=== PATIENT | male | born 1970 | race Caucasian/White ===

== ENCOUNTER 2017-03-04 15:34 | Inpatient (IN) | payer OTHER ==
[2017-03-04] MEDS ORDERED: Sodium Chloride 0.9% 1,000 ML IV ONE (16:00)
--- NOTE | 2017-03-04 16:01 | EDM.PDOC ---
ED HPI GENERAL MEDICAL PROBLEM - General Chief Complaint: Abdominal Pain Stated Complaint: SEVERE ABDOMINAL PAIN [id number] Time Seen by Provider: 03/04/17 15:52 Source of Information: Reports: Patient History Limitations: Reports: No Limitations - History of Present Illness INITIAL COMMENTS - FREE TEXT/NARRATIVE: 46 yo white male c/o 3 days of RLQ pain Onset Date: 03/01/17 Onset Time: 12:00 Duration: Day(s): Location: Reports: Abdomen Quality: Reports: Ache Severity: Moderate Improves with: Reports: None Worsens with: Reports: None Associated Symptoms: Reports: Loss of Appetite Right Lower Abdominal Pain Score (Numeric/FACES): 2 - Related Data Allergies Allergy/AdvReac Type Severity Reaction Status Date / Time No Known Allergies Allergy Verified 03/04/17 15:43 Home Meds: Home Meds Ranitidine HCl [Zantac 75] 75 mg PO DAILY 03/04/17 [History] Past Medical History Respiratory History: Reports: Sleep Apnea Gastrointestinal History: Reports: Hiatal Hernia - Past Surgical History Musculoskeletal Surgical History: Reports: Other (See Below) Other Musculoskeletal Surgeries/Procedures:: knee surgery RENE Social & Family History - Family History Family Medical History: Noncontributory - Tobacco Use Smoking Status *Q: Never Smoker Second Hand Smoke Exposure: No - Caffeine Use Caffeine Use: Reports: Soda, Tea - Recreational Drug Use Recreational Drug Use: No ED ROS GENERAL - Review of Systems Review Of Systems: See Below Constitutional: Reports: No Symptoms HEENT: Reports: No Symptoms Respiratory: Reports: No Symptoms Cardiovascular: Reports: No Symptoms Endocrine: Reports: No Symptoms GI/Abdominal: Reports: Abdominal Pain (rlq), Nausea : Reports: No Symptoms Musculoskeletal: Reports: No Symptoms Skin: Reports: No Symptoms Neurological: Reports: No Symptoms Psychiatric: Reports: No Symptoms Hematologic/Lymphatic: Reports: No Symptoms Immunologic: Reports: No Symptoms ED EXAM, GI/ABD - Physical Exam Exam: See Below Exam Limited By: No Limitations General Appearance: Alert, WD/WN, No Apparent Distress Eyes: Bilateral: EOMI Ears: Normal External Exam Nose: Normal Inspection Throat/Mouth: Normal Inspection Head: Atraumatic Neck: Normal Inspection Respiratory/Chest: No Respiratory Distress, Lungs Clear Cardiovascular: Normal Peripheral Pulses, Regular Rate, Rhythm, No Edema GI/Abdominal Exam: Tender (RLQ), Abnormal Bowel Sounds (decreased) (Male) Exam: No Hernia Back Exam: Normal Inspection Extremities: Normal Inspection, Normal Range of Motion Neurological: Alert, Oriented, CN II-XII Intact Psychiatric: Normal Affect, Normal Mood Skin Exam: Warm, Dry Lymphatic: No Adenopathy Course - Vital Signs Text/Narrative:: Patient Imaging study show acute appendicitis. General Surgery Dr. Jaffe called to evaluate Last Recorded V/S: Last Vital Signs Temp 37.9 C 03/04/17 15:44 Pulse 100 03/04/17 15:44 Resp 18 03/04/17 15:44 BP 158/99 H 03/04/17 15:44 Pulse Ox 100 03/04/17 15:44 - Orders/Labs/Meds Orders: Active Orders 24 hr Category Date Time Status cefOXitin [Mefoxin] 1 gm Med 03/04/17 18:22 Active Sodium Chloride 0.9% [Normal Saline] 50 ml IV ONETIME Medication Orders Cefoxitin Sodium 1 gm/ Sodium (Chloride) 50 mls @ 100 mls/hr IV ONETIME ONE Stop: 03/04/17 18:51 Labs: Laboratory Tests 03/04/17 03/04/17 03/04/17 Range/Units 16:10 16:10 16:10 WBC 17.4 H (5.0-10.0) 10^3/uL RBC 5.22 (4.6-6.2) 10^6/uL Hgb 15.3 (14.0-18.0) g/dL Hct 45.4 (40.0-54.0) % MCV 87.0 (80-100) fL MCH 29.3 (27.0-34.0) pg MCHC 33.7 (33.0-35.0) g/dL Plt Count 235 (150-450) 10^3/uL Neut % (Auto) 83.8 H (42.2-75.2) % Lymph % (Auto) 6.4 L (20.5-50.1) % [place] % (Auto) 9.6 H (2-8) % Eos % (Auto) 0.0 L (1.0-3.0) % Baso % (Auto) 0.2 (0.0-1.0) % Sodium 135 (135-145) mmol/L Potassium 3.9 (3.6-5.0) mmol/L Chloride 98 L (101-111) mmol/L Carbon Dioxide 27.0 (21.0-31.0) mmol/L Anion Gap 13.9 BUN 15 (7-18) mg/dL Creatinine 1.0 (0.6-1.3) mg/dL Est Cr Clr Drug Dosing 105.03 mL/min Estimated GFR (MDRD) > 60 BUN/Creatinine Ratio 15.00 Glucose 105 (74-105) mg/dL Calcium 9.0 (8.4-10.2) mg/dl Total Bilirubin 1.0 (0.2-1.0) mg/dL AST 19 (10-42) IU/L ALT 17 (10-60) IU/L Alkaline Phosphatase 67 (42-121) IU/L Total Protein 7.5 (6.7-8.2) g/dl Albumin 4.0 (3.2-5.5) g/dl Globulin 3.5 Albumin/Globulin Ratio 1.14 Amylase 43 (28-100) U/L Lipase 24 (22-51) U/L Urine Color (YELLOW) Urine Appearance (CLEAR) Urine pH (5.0-9.0) Ur Specific [place] (1.005-1.030) Urine Protein (NEGATIVE) Urine Glucose (UA) (NEGATIVE) Urine Ketones (NEGATIVE) Urine Occult Blood (NEGATIVE) Urine Nitrite (NEGATIVE) Urine Bilirubin (NEGATIVE) Urine Urobilinogen (0.2-1.0) mg/dL Ur Leukocyte Esterase (NEGATIVE) Urine RBC /HPF Urine WBC (0-5/HPF) /HPF Ur Epithelial Cells /HPF Urine Bacteria (0-FEW/HPF) /HPF Urine Mucus /LPF 03/04/17 Range/Units 17:10 WBC (5.0-10.0) 10^3/uL RBC (4.6-6.2) 10^6/uL Hgb (14.0-18.0) g/dL Hct (40.0-54.0) % MCV (80-100) fL MCH (27.0-34.0) pg MCHC (33.0-35.0) g/dL Plt Count (150-450) 10^3/uL Neut % (Auto) (42.2-75.2) % Lymph % (Auto) (20.5-50.1) % [place] % (Auto) (2-8) % Eos % (Auto) (1.0-3.0) % Baso % (Auto) (0.0-1.0) % Sodium (135-145) mmol/L Potassium (3.6-5.0) mmol/L Chloride (101-111) mmol/L Carbon Dioxide (21.0-31.0) mmol/L Anion Gap BUN (7-18) mg/dL Creatinine (0.6-1.3) mg/dL Est Cr Clr Drug Dosing mL/min Estimated GFR (MDRD) BUN/Creatinine Ratio Glucose (74-105) mg/dL Calcium (8.4-10.2) mg/dl Total Bilirubin (0.2-1.0) mg/dL AST (10-42) IU/L ALT (10-60) IU/L Alkaline Phosphatase (42-121) IU/L Total Protein (6.7-8.2) g/dl Albumin (3.2-5.5) g/dl Globulin Albumin/Globulin Ratio Amylase (28-100) U/L Lipase (22-51) U/L Urine Color Yellow (YELLOW) Urine Appearance Clear (CLEAR) Urine pH 7.0 (5.0-9.0) Ur Specific [place] 1.020 (1.005-1.030) Urine Protein 30 H (NEGATIVE) Urine Glucose (UA) Negative (NEGATIVE) Urine Ketones Negative (NEGATIVE) Urine Occult Blood Moderate H (NEGATIVE) Urine Nitrite Negative (NEGATIVE) Urine Bilirubin Negative (NEGATIVE) Urine Urobilinogen 0.2 (0.2-1.0) mg/dL Ur Leukocyte Esterase Negative (NEGATIVE) Urine RBC 5-10 H /HPF Urine WBC 0-5 (0-5/HPF) /HPF Ur Epithelial Cells Rare /HPF Urine Bacteria Few (0-FEW/HPF) /HPF Urine Mucus Few H /LPF Meds: Medications Generic Name Dose Route Start Last Admin Trade Name Freq PRN Reason Stop Dose Admin Cefoxitin Sodium 1 gm/ Sodium 50 mls @ 100 mls/hr 03/04/17 18:22 Chloride IV 03/04/17 18:51 ONETIME ONE Discontinued Medications Generic Name Dose Route Start Last Admin Trade Name Freq PRN Reason Stop Dose Admin Sodium Chloride 1,000 mls @ 999 mls/hr 03/04/17 16:00 03/04/17 16:13 Normal Saline IV 03/04/17 17:00 999 mls/hr .BOLUS ONE Administration Iopamidol 75 ml 03/04/17 16:42 Isovue-300 (61%) IVPUSH 03/04/17 16:43 ONETIME ONE Iopamidol 100 ml 03/04/17 16:51 03/04/17 16:56 Isovue-300 (61%) IVPUSH 03/04/17 16:52 100 ml ONETIME ONE Administration Morphine Sulfate 4 mg 03/04/17 18:22 Morphine IVPUSH 03/04/17 18:23 ONETIME ONE Ondansetron HCl 4 mg 03/04/17 17:33 03/04/17 17:59 Zofran IV 03/04/17 17:34 4 mg ONETIME ONE Administration Departure - Departure Time of Disposition: 18:26 Disposition: Admitted As Inpatient 64 Condition: Fair Clinical Impression: Appendicitis Qualifiers: Appendicitis type: acute appendicitis Acute appendicitis type: unspecified acute appendicitis type Qualified Code(s): K35.80 - Unspecified acute appendicitis - Discharge Information Referrals: Elier Jaffe MD [Physician] - Forms: ED Department Discharge - My Orders Last 24 Hours: My Active Orders 03/04/17 18:22 cefOXitin [Mefoxin] 1 gm Sodium Chloride 0.9% [Normal Saline] 50 ml IV ONETIME - Assessment/Plan Last 24 Hours: My Active Orders 03/04/17 18:22 cefOXitin [Mefoxin] 1 gm Sodium Chloride 0.9% [Normal Saline] 50 ml IV ONETIME
[2017-03-04] MEDS ORDERED: Iopamidol 612 MG/ML 75 ML Bottle IVPUSH ONE (16:42)
[2017-03-04] MEDS ORDERED: Iopamidol 612 MG/ML 100 ML Bottle IVPUSH ONE (16:51)
[2017-03-04 17:14] LABS: CHLORIDE,CL 98 mmol/L (101-111)
[2017-03-04 17:18] LABS: SODIUM,NA 135 mmol/L (135-145)
[2017-03-04] MEDS ORDERED: Ondansetron 4 MG/2 ML SDV IV ONE ×2 (17:33→19:12)
[2017-03-04] MEDS ORDERED: Morphine 4 MG/ML Syringe IVPUSH ONE (18:22)
[2017-03-04] MEDS ORDERED: Midazolam 1 MG/ML 2 ML SDV ONE (18:52)
[2017-03-04] MEDS ORDERED: ePHEDrine 50 MG/ML SDV ONE (18:53)
[2017-03-04] MEDS ORDERED: Ketorolac 30 MG/ML SDV ONE (18:53)
[2017-03-04] MEDS ORDERED: Ondansetron 4 MG/2 ML SDV ONE (18:53)
[2017-03-04] MEDS ORDERED: fentaNYL 100 MCG/2 ML SDV ONE (18:53)
[2017-03-04] MEDS ORDERED: Neostigmine Methylsulfate 10 MG/10 ML MDV ONE (18:53)
[2017-03-04] MEDS ORDERED: Phenylephrine 1% 10 MG/ML SDV ONE (18:53)
[2017-03-04] MEDS ORDERED: Glycopyrrolate 0.2 MG/ML 2 ML SDV ONE (18:53)
[2017-03-04] MEDS ORDERED: Propofol 200 MG/20 ML SDV ONE (18:54)
[2017-03-04] MEDS ORDERED: Lidocaine 2% 20 ML MDV ONE (18:54)
[2017-03-04] MEDS ORDERED: Succinylcholine 200 MG/10 ML MDV ONE (18:54)
[2017-03-04] MEDS ORDERED: Rocuronium 50 MG/5 ML Vial ONE (18:54)
--- NOTE | 2017-03-04 19:01 | PCM.SN ---
- Free Text/Narrative Note: I examined this patient in the ED and concur with the assessment of acute appendicitis. Discussed the risks benefits and expected outcomes of laparoscopic appendectomy with the patient and should proceed tonight. Possibility of rupture secondary to 3 day history. Possibility of intra- abdominal abcess post-operatively is perhaps 25%. Patient agrees with the above statement. Dr. Jaffe
[2017-03-04] MEDS ORDERED: Ketorolac 30 MG/ML SDV IVPUSH ONE (19:12)
[2017-03-04] MEDS ORDERED: Glycopyrrolate 0.2 MG/ML 2 ML SDV IV ONE (19:12)
[2017-03-04] MEDS ORDERED: Succinylcholine 200 MG/10 ML MDV IV ONE (19:12)
[2017-03-04] MEDS ORDERED: Midazolam 1 MG/ML 2 ML SDV IV ONE (19:12)
[2017-03-04] MEDS ORDERED: Lactated Ringers 1,000 ML IV ONE (19:12)
[2017-03-04] MEDS ORDERED: Famotidine 20 MG/2 ML SDV ONE (19:12)
[2017-03-04] MEDS ORDERED: Lidocaine 2% 20 ML MDV INJECT ONE (19:12)
[2017-03-04] MEDS ORDERED: fentaNYL 100 MCG/2 ML SDV IV ONE (19:12)
[2017-03-04] MEDS ORDERED: Famotidine 20 MG/2 ML SDV IV ONE (19:12)
[2017-03-04] MEDS ORDERED: Neostigmine Methylsulfate 10 MG/10 ML MDV IV ONE (19:12)
[2017-03-04] MEDS ORDERED: Propofol 200 MG/20 ML SDV IV ONE (19:12)
[2017-03-04] MEDS ORDERED: Ondansetron 4 MG/2 ML SDV IVPUSH PRN (20:38)
[2017-03-04] MEDS ORDERED: Morphine 4 MG/ML Syringe IVPUSH PRN (20:38)
[2017-03-04] MEDS: Acetaminophen/oxyCODONE 325-5 MG Tab PO PRN (21:30)
[2017-03-04] MEDS: Docusate Sodium 100 MG Cap PO PRN (21:30)
--- NOTE | 2017-03-05 04:54 | OR ---
DATE: 03/04/2017 PREOPERATIVE DIAGNOSIS: Acute appendicitis. POSTOPERATIVE DIAGNOSIS: Acute appendicitis. PROCEDURE: Laparoscopic appendectomy. ANESTHESIA: General. SPECIMEN: Appendix. OPERATIVE FINDINGS: Perforated appendicitis. INDICATION FOR PROCEDURE: This 46-year-old male presents to [facility] with a 3-day history of abdominal pain, now maximally located in the right lower quadrant. He has an elevated white blood cell count of 17,000, and a CT scan consistent with appendicitis. PROCEDURE IN DETAIL: After adequate preparation, the abdomen was insufflated and trocars were placed. Inspection of the abdomen did show multiple adhesions of the right colon and cecum area to the lateral abdominal wall. These were taken down to expose the base of the appendix. The appendix was followed down along the right gutter down toward the pelvis and at that point, it was noted that the appendix was ruptured and there was a moderate-sized fecalith in the middle of the appendix. There was no abscess cavity, however, and no significant contamination. The appendix was amputated from the base of the cecum using a 45 mm stapler. The mesoappendix was then stapled across and checked for blood, there was no bleeding. The appendix was placed in retrieval bag and brought out through the suprapubic trocar site. The cavity where the appendix was, was inspected and irrigated with some saline. No other gross abnormalities were noted within the abdomen. The trocars were removed and the abdomen desufflated. Skin closed with Monocryl. [facility] /[id number]
[2017-03-05] MEDS: Acetaminophen/oxyCODONE 325-5 MG Tab PO PRN ×3 (05:18→21:57)
[2017-03-05] MEDS: cefOXitin 2 GM in Sodium Chloride 0.9% 100 ML IV SCH ×6 (05:18→23:56)
--- NOTE | 2017-03-05 07:21 | PCM.POSTAN ---
POST ANESTHESIA ASSESSMENT - MENTAL STATUS Mental Status: Alert - VITAL SIGNS Pulse Rate: 93 SaO2: 93 Resp Rate: 16 Blood Pressure: 99/66 Temperature: 37.3 C - RESPIRATORY Respiratory Status: Respiratory Rate WNL - CARDIOVASCULAR CV Status: Pulse Rate WNL - GASTROINTESTINAL GI Status: No Symptoms - POST OP HYDRATION Hydration Status: Adequate & Stable - OBSERVATIONS Free Text/Narrative:: Pt c/o mild incisional pain, relieved by meds, but is probably limiting ability to take deep breaths and cough as evidenced by his SPO2. Mild c/o sore throat, resolving per patient. No other c/o - no post anesthesia complications noted. Wrote an order to encourage pulmonary toilet - laya incentive spirometry use. If no improvement in SPO2, RT consult should be considered.
[2017-03-05] MEDS ORDERED: cefOXitin 2 GM in Sodium Chloride 0.9% 100 ML IV SCH (12:00)
[2017-03-05] MEDS: Famotidine 20 MG Tab PO SCH (21:56)
[2017-03-05] MEDS: Docusate Sodium 100 MG Cap PO PRN (21:58)
[2017-03-06] MEDS: Acetaminophen/oxyCODONE 325-5 MG Tab PO PRN ×4 (02:09→23:50)
[2017-03-06] MEDS: cefOXitin 2 GM in Sodium Chloride 0.9% 100 ML IV SCH ×2 (06:06→12:16)
--- NOTE | 2017-03-06 08:44 | PCM.SN ---
- Free Text/Narrative Note: Pain better today. Had night sweats last PM. Fever to 100.5. PO intake better , no flatus. WBC this AM still shows increased to 14K. Abd soft with only mild tenderness. Will keep as inpatient today and change antibiotic from Mefoxin to Cipro and Flagyl. Repeat CBC tomorrow.
[2017-03-06] MEDS: Ciprofloxacin in D5W 400 MG in Premix Bag 1 BAG IV SCH ×4 (09:25→21:32)
[2017-03-06] MEDS: Famotidine 20 MG Tab PO SCH ×2 (09:28→21:30)
--- NOTE | 2017-03-06 10:33 | CT ---
Addendum report: CT scan abdomen this postop patient with "ruptured appendix" was reviewed surgeon diane o was concerned regarding retroperitoneal fatty mass, on the right, adjacent to the psoas. This may s imply reflect the acute inflammatory process however cannot entirely exclude possibility of a liposar coma and suggest this patient has an elective MRI in [place].
[2017-03-06] MEDS: metroNIDAZOLE/Normal Saline 500 MG in Premix Bag 100 BAG IV SCH ×2 (10:36→17:33)
--- NOTE | 2017-03-06 13:57 | HP ---
PATIENT WAS ADMITTED ON 03/04/2017 INTRODUCTION: This 46-year-old male, presented to the emergency room with a 3- day history of abdominal pain, now maximally located in the right lower quadrant. CT scan had been obtained by the ED and is consistent with appendicitis. He has an elevated white blood cell count of 17,000. He is anorexic and nauseated. Physical examination confirms mostly pain in the right lower quadrant. PAST MEDICAL HISTORY: The patient has no allergies. MEDICATIONS: Current medications are antacids as needed. PRIOR SURGERIES: Include bilateral knee surgery. 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 He does not smoke. REVIEW OF SYSTEMS: Only positive for sleep apnea. PHYSICAL EXAMINATION: HEENT: Normal. Chest: Lungs are clear bilaterally. Heart: Normal sinus rhythm. Abdomen: Mildly obese. He has maximal tenderness in the right lower quadrant with positive rebound and guarding. Extremities: Normal. Neurologic: Intact. LABORATORY WORK: Shows CT scan with suspected appendicitis and elevated white blood cell count to 17,000. ASSESSMENT: Acute appendicitis. PLAN: I discussed the risks, benefits, and expected outcomes of a laparoscopic appendectomy with this patient. We will proceed to the operating room today. [facility] /[id number]
[2017-03-06] MEDS ORDERED: Propofol 200 MG/20 ML SDV IV ONE (16:41)
[2017-03-06] MEDS ORDERED: fentaNYL 100 MCG/2 ML SDV IV ONE (16:41)
[2017-03-06] MEDS ORDERED: Midazolam 1 MG/ML 2 ML SDV IV ONE (16:41)
[2017-03-06] MEDS ORDERED: Ketorolac 30 MG/ML SDV IVPUSH ONE (16:41)
[2017-03-06] MEDS ORDERED: Famotidine 20 MG/2 ML SDV IV ONE (16:41)
[2017-03-06] MEDS ORDERED: Lidocaine 2% 20 ML MDV INJECT ONE (16:41)
[2017-03-06] MEDS ORDERED: Neostigmine Methylsulfate 10 MG/10 ML MDV IV ONE (16:41)
[2017-03-06] MEDS ORDERED: Glycopyrrolate 0.2 MG/ML 2 ML SDV IV ONE (16:41)
[2017-03-06] MEDS ORDERED: Succinylcholine 200 MG/10 ML MDV IV ONE (16:41)
[2017-03-06] MEDS ORDERED: Lactated Ringers 1,000 ML IV ONE (16:41)
[2017-03-06] MEDS ORDERED: Ondansetron 4 MG/2 ML SDV IV ONE (16:41)
[2017-03-07] MEDS: metroNIDAZOLE/Normal Saline 500 MG in Premix Bag 100 BAG IV SCH ×2 (02:16→11:18)
[2017-03-07] MEDS ORDERED: Sodium Chloride 0.9% 10 ML Syringe FLUSH PRN (03:21)
--- NOTE | 2017-03-07 09:34 | PCM.SN ---
- Free Text/Narrative Note: Patient much better today. Normal WBC at 7K. PO intake adequate. Wounds OK with nontender abdomen. No fever last 24 hours. He feels better and would like to go home. Instructions given. Will send home on PO Cipro and Flagyl for 1 week and Percocet as needed for pain. Discharge summary dictated.
[2017-03-07] MEDS: Acetaminophen/oxyCODONE 325-5 MG Tab PO PRN ×2 (09:45→20:50)
[2017-03-07] MEDS: Ciprofloxacin in D5W 400 MG in Premix Bag 1 BAG IV SCH ×2 (09:46)
[2017-03-07] MEDS: Famotidine 20 MG Tab PO SCH ×2 (09:46→20:49)
--- NOTE | 2017-03-07 15:20 | DISCH ---
PATIENT ADMITTED ON 03/04/17. ADMITTING DIAGNOSIS: Acute appendicitis. DISCHARGE DIAGNOSIS: Perforated acute appendicitis. PROCEDURE: Laparoscopic appendectomy on 03/04. INTRODUCTION: This 46-year-old male, presented to the emergency room with a 3- day history of abdominal pain maximally located in the right lower quadrant. He has not particularly had any fever, nausea, or vomiting, but he was somewhat anorexic. In the emergency room, the workup was positive for an elevated white blood cell count of 17,000, and a CT scan that was consistent with acute appendicitis. PAST MEDICAL HISTORY: Medical history is positive for obstructive sleep apnea. PAST SURGICAL HISTORY: Prior surgeries include bilateral knee scopes. ALLERGIES: The patient has no allergies. CURRENT MEDICATIONS: Include antacids PHYSICAL EXAMINATION: Heart: Clear. Lungs: Clear. Abdomen: Tender especially in the right lower quadrant. He has positive rebound and guarding. HOSPITAL COURSE: On 03/04, he underwent a laparoscopic appendectomy. At that time, the appendix was noted to be perforated. Postoperatively, he did fairly well, but on postop day #2, his white blood cell count was still elevated to 14,000, and he had a low-grade temperature. He did not have return of bowel function yet and was mildly distended antibiotics were switched from Mefoxin to Cipro and Flagyl. By the next day, he felt much better. His bowel function returned, and this patient will be discharged with the instructions to take Percocet as needed for pain, and I am going to keep him on Flagyl and Cipro for the next week orally. His incisions looked good on discharge, and his abdomen was soft and nontender. Of note, however on his CAT scan, there was a large excessive of retroperitoneal fat over the psoas muscle posterior to where the appendix was initially and this was overlooked, however, I think this represents a true enlargement of the amount of fat he has there and this should be followed several months after his recovery at home. He should receive an MRI for evaluation of this retroperitoneal fat and then depending on what that shows follow up serially for changes in this or suspicion for liposarcoma. [facility] /[id number]
[2017-03-07] MEDS: metroNIDAZOLE 250 MG Tab PO SCH ×2 (15:30→20:49)
[2017-03-07] MEDS: Magnesium Hydroxide 400 MG/5 ML Susp 30 ML Cup PO SCH ×2 (15:30→20:50)
--- NOTE | 2017-03-07 18:59 | PCM.SN ---
- Free Text/Narrative Note: Patient was ready for discharge however he became increasingly nauseated and felt more distended. Will hold discharge for now and keep him until better. Will keep on PO meds and clear liquid diet only. MOM for constipation until bowel function better.
[2017-03-07] MEDS: Ciprofloxacin 500 MG Tab PO SCH (20:49)
[2017-03-08] MEDS: Famotidine 20 MG Tab PO SCH (10:15)
[2017-03-08] MEDS: Magnesium Hydroxide 400 MG/5 ML Susp 30 ML Cup PO SCH (11:35)
[2017-03-08] MEDS: Ciprofloxacin 500 MG Tab PO SCH (12:09)
[2017-03-08] MEDS: metroNIDAZOLE 250 MG Tab PO SCH (12:09)
[2017-03-08 16:27] VITALS: BP 137/84
--- NOTE | 2017-03-08 17:52 | PCM.SN ---
- Free Text/Narrative Note: This is an addendum to the discharge plan for yesterday. Patient was ready to discharge yesterday but nearing the time to go he felt more bloated and nauseated. He had one emesis therefore the discharge was prolonged until today. Feels much better this afternoon and able to pass flatus and tolerated PO well. He is requesting to complete the discharge plan. He will FU here if he is still in the area or at his home in [place] when he arrives there. OK to DC.
== END 2017-03-08 17:05 | disposition home or self-care (01) | DRG 340 ==
LOC: DL.SDS 15:34 → DL.MS 19:36 → OBSVTOIN 03-06 09:36
PROVIDERS: ADMIT Surgery; ATTEND Surgery
PROC: 0DTJ4ZZ Resection of Appendix, Percutaneous Endoscopic Approach (ICD-10-PCS; principal; 2017-03-04)
DX: K35.80 Unspecified acute appendicitis (principal); R10.31 Right lower quadrant pain; K35.2 Acute appendicitis with generalized peritonitis; G47.30 Sleep apnea, unspecified; K44.9 Diaphragmatic hernia without obstruction or gangrene; R11.0 Nausea; R14.0 Abdominal distension (gaseous); K59.00 Constipation, unspecified
CPT/HCPCS: 74177; 96375 ×2; 96366 ×2; 99285; 96365; 96361; 85025 ×2; 81001; 36415 ×2; 80053; 82150; 83690; Q9967; J0694 ×8; J0744; A9270 ×11; J3010; J1885; J2250; J2270; J2710; J7030; J7050 ×8; J2405 ×3; J2704; J7120; J0330; G0378; 85027; J3490; S0028